=== PATIENT | male | born 1975 | race Caucasian/White ===

== ENCOUNTER 2016-12-02 22:52 | Inpatient (IN) ==
--- NOTE | 2016-12-03 00:09 | Emergency Department Note ---
Disposition Clinical Impression: Abscess of skin or subcutaneous tissue Qualifiers: Site of cutaneous abscess: extremity Site of cutaneous abscess of extremity: upper extremity Laterality: right Qualified Code(s): L02.413 - Cutaneous abscess of right upper limb Cellulitis Qualifiers: Site of cellulitis: extremity Site of cellulitis of extremity: upper extremity Laterality: right Qualified Code(s): L03.113 - Cellulitis of right upper limb Disposition: Admitted As Inpatient Condition: Good Time of Disposition: 04:39 Skin/Abscess/FB HPI Chief complaint: ED Skin/Abscess/Foreign Body Stated complaint: abscess to right wrist Time Seen by Provider: 12/02/16 23:15 Source: patient Limitations: no limitations Nursing Notes Reviewed: Yes Vital Signs Reviewed: Yes HPI Narrative: 41-year-old male complains of abscess to the flexor surface of his right wrist. He states he was seen in this department 1 day ago to return with worsening symptoms. He does state that he has been taking his Keflex and Bactrim. He states the redness has worsened his hand started swelling in his saw no improvement which prompted his visit to the emergency department. He states the abscess was not drained last night since the radial nerve was close to the abscess. He describes initially the abscess started as a ingrown hair. He denies shortness of breath fevers, chills, immune compromised state, h/o of previoius skin infections, IVDU. Previous Rx's Medication Instructions Recorded Naproxen [Naprosyn] 500 mg PO BID PRN #15 tablet 08/18/15 Penicillin VK 500 mg PO TID #21 tablet 08/18/15 Sulfamethoxazole/Trimeth DS 1 each PO BID #14 tablet 12/01/16 [Bactrim DS] cephALEXin [Keflex] 500 mg PO QID #28 capsule 12/01/16 Allergies Allergy/AdvReac Type Severity Reaction Status Date / Time No Known Allergies Allergy Verified 12/01/16 23:01 All systems ED: reviewed and negative except as stated. Constitutional: Denies: fever, chills Eyes: Denies: eye discharge ENT ED: Denies: throat pain Cardiovascular: Denies: palpitations Respiratory: Denies: dyspnea, wheezes Gastrointestinal: Denies: nausea, vomiting Genitourinary: Denies: dysuria Musculoskeletal: Reports: as per HPI. Denies: neck pain Integumentary: Reports: as per HPI Endocrine: Denies: fatigue Hematological/Lymphatic: Denies: easy bleeding Allergic/Immunologic: Denies: facial swelling Past Medical History - Past Medical History Medical history: Reports: no medical history Psychiatric history: Reports: no psych history - Social History Smoking Status: Never smoker Smokeless Tobacco Status: No Alcohol use: Reports: occasionally Drug use: Reports: none Physical Exam - General Limitations: no limitations General appearance: alert, in no apparent distress - Head Head exam: normal inspection - Eye Eye exam: Absent: conjunctival injection - ENT ENT exam: mucous membranes moist - Neck Neck exam: Present: full ROM - Chest Chest inspection: Present: symmetric chest wall rise - Respiratory Respiratory exam: Absent: respiratory distress - Cardiovascular Cardiovascular exam: Present: normal rhythm, tachycardia - Extremities Exam Extremities exam: Present: normal capillary refill - Expanded Upper Extremity Exam Shoulder exam: Present: full ROM Arm exam: Present: full ROM Elbow exam: Present: full ROM Forearm/Wrist exam: Present: tenderness, swelling, other (Abscess or flexor surface of distal forearm, erythema surpasses skin marker, fluctuance, firm, mild drainage) Hand exam: Present: swelling. Absent: tenderness (Right) Neuromotor exam: Normal: wrist extension, thumb opposition, thumb IP flexion, thumb adduction, fingers 2-5 abduction Hand tendon exam: Normal: flexor digitorum profundus (location), flexor digitorum superficialis (location), extensor tendon (location) Vascular exam: Normal: capillary refill, radial pulse - Back Exam Back exam: Present: full ROM - Neurological Exam Neurological exam: Present: alert, oriented X3 - Psychiatric Psychiatric exam: Present: normal affect, normal mood - Skin Skin exam: Present: warm, dry, intact, normal color. Absent: rash, cyanosis, diaphoresis Course Course Narrative: 41-year-old male presents with worsening abscess to his right wrist. Patient seen and examined. The erythema does appear to be outside the skin marker patient mentions was placed last night. Patient is compliant with his antibiotics. There is some mild fluctuance and some drainage. Review of medical records show that there was no fluctuance or drainage yesterday. Patient is slightly tachycardic. Discussed with Dr. Garcia who suggested CT. Will Draw labs. Plan CT. - Reevaluation(s) Reevaluation #1: Patient was discussed with Dr. Garcia who had face time with patient and also discussed CT results with radiologist. Radiologist describing a 3 cm fluid- filled pocket, with the radial artery 1 cm below that. She is recommending admission for more thorough and/or vascular consult. This was discussed with patient who is considering a this time. Time: 03:45 Reevaluation #2: Patient was discussed with and accepted by Dr. Medina Time: 04:34 Vital Signs Temperature 98 F 12/02/16 22:52 Pulse Rate 102 12/02/16 22:52 Respiratory Rate 20 12/02/16 22:52 Blood Pressure 196/108 12/02/16 22:52 O2 Sat by Pulse Oximetry 98 12/02/16 22:52 Temperature 98.7 F 12/03/16 05:16 Pulse Rate 85 12/03/16 05:16 Respiratory Rate 16 12/03/16 05:16 Blood Pressure 187/106 12/03/16 05:16 O2 Sat by Pulse Oximetry 100 12/03/16 05:16 Oxygen Delivery Oxygen Delivery Room Air Skin/Abscess/Foreign Body - MDM Narrative Medical decision making narrative: Patient had initially been seen in the emergency department yesterday for abscess and was put on by mouth antibiotics. He returns today with worsening pain abscess and erythema and swelling. There did appear to be cellulitis in his hand has worsened since yesterday. Ultrasound yesterday was documented by Dr. Saenz and there was a concern for location of the radial artery. With no improvement today CT scan was performed and the radiologist did see the radiating all artery 1 cm deep with recommendations for surgical consultation. Patient was afebrile here as well as at home, however he did have an elevated white count and slightly tachycardic. Blood cultures were drawn, no elevation of lactate. Patient was discussed with hospitalist who sent the patient. Patient was also discussed with attending Dr. Garcia who also had face time with patient and agreed with workup and admission. Forearm CT 12/03/16 00:38 IMPRESSION: Suspected 3.0 cm size abscess in the subcutaneous soft tissues of the radial/volar distal forearm. The radial artery appears to past approximately 1 cm deep to the suspected developing abscess. Surgical consultation is recommended. This was discussed with Dr. Mcguire at 3:43 a.m., 12/03/2016. MRI could better evaluate the soft tissues of the forearm. D/ / Elvin Hawley MD / Elvin Hawley MD Interpreting Provider: Elvin Hawley MD All Lab Results (24 Hours) 12/03/16 12/03/16 12/03/16 Range/Units 00:10 00:10 00:10 WBC 15.4 H (4.3-11.1) K/mcL RBC 5.12 (4.19-5.50) M/mcL Hgb 15.2 (12.9-16.9) g/dL Hct 43.2 (37.5-50.1) % MCV 84.4 (83.0-100.0) fL MCH 29.7 (28.0-33.3) pg MCHC 35.2 (31.6-35.5) g/dL RDW 12.3 (11.5-14.5) % Plt Count 319 (140-400) K/mcL MPV 8.8 L (9.4-12.4) fL Immature Gran % 0.4 (0-4) % Seg Neutrophils % 76.6 % Lymphocytes % 16.0 % Monocytes % 5.8 % Eosinophils % 1.0 % Basophils % 0.2 % Neutrophils # 11.8 H (1.6-8.9) K/mcL Lymphocytes # 2.5 (0.6-4.6) K/mcL Monocytes # 0.9 (0.0-1.3) K/mcL Eosinophils # 0.2 (0.0-0.6) K/mcL Basophils # 0.0 (0.0-0.2) K/mcL Immature Plt Fraction 1.8 (1.1-6.1) % ESR 14 H (0-10) mm/hr Sodium 137 (136-145) mEq/L Potassium 4.2 (3.5-4.5) mEq/L Chloride 105 (98-109) mEq/L Carbon Dioxide 25 (19-29) mEq/L BUN 10 (8-26) mg/dL Creatinine 0.88 (0.72-1.25) mg/dL Est GFR ( Amer) > 60 (> 60) Est GFR (Non-Af Amer) > 60 (> 60) BUN/Creatinine Ratio 11 (6-26) Glucose 138 H (70-99) mg/dL Calculated Osmolality 285 (280-300) Lactic Acid (0.5-2.2) mmol/L Calcium 9.2 (8.6-10.8) mg/dL C-Reactive Protein 24 H (Less than 5) mg/L 12/03/16 Range/Units 00:10 WBC (4.3-11.1) K/mcL RBC (4.19-5.50) M/mcL Hgb (12.9-16.9) g/dL Hct (37.5-50.1) % MCV (83.0-100.0) fL MCH (28.0-33.3) pg MCHC (31.6-35.5) g/dL RDW (11.5-14.5) % Plt Count (140-400) K/mcL MPV (9.4-12.4) fL Immature Gran % (0-4) % Seg Neutrophils % % Lymphocytes % % Monocytes % % Eosinophils % % Basophils % % Neutrophils # (1.6-8.9) K/mcL Lymphocytes # (0.6-4.6) K/mcL Monocytes # (0.0-1.3) K/mcL Eosinophils # (0.0-0.6) K/mcL Basophils # (0.0-0.2) K/mcL Immature Plt Fraction (1.1-6.1) % ESR (0-10) mm/hr Sodium (136-145) mEq/L Potassium (3.5-4.5) mEq/L Chloride (98-109) mEq/L Carbon Dioxide (19-29) mEq/L BUN (8-26) mg/dL Creatinine (0.72-1.25) mg/dL Est GFR ( Amer) (> 60) Est GFR (Non-Af Amer) (> 60) BUN/Creatinine Ratio (6-26) Glucose (70-99) mg/dL Calculated Osmolality (280-300) Lactic Acid 1.1 (0.5-2.2) mmol/L Calcium (8.6-10.8) mg/dL C-Reactive Protein (Less than 5) mg/L - Lab Data Lab results reviewed: Yes I reviewed the patient's lab results. Result diagrams: 12/03/16 00:10 07/29/17 00:10 Lab Results 12/03/16 12/03/16 12/03/16 Range/Units 00:10 00:10 00:10 WBC 15.4 H (4.3-11.1) K/mcL RBC 5.12 (4.19-5.50) M/mcL Hgb 15.2 (12.9-16.9) g/dL Hct 43.2 (37.5-50.1) % MCV 84.4 (83.0-100.0) fL MCH 29.7 (28.0-33.3) pg MCHC 35.2 (31.6-35.5) g/dL RDW 12.3 (11.5-14.5) % Plt Count 319 (140-400) K/mcL MPV 8.8 L (9.4-12.4) fL Immature Gran % 0.4 (0-4) % Seg Neutrophils % 76.6 % Lymphocytes % 16.0 % Monocytes % 5.8 % Eosinophils % 1.0 % Basophils % 0.2 % Neutrophils # 11.8 H (1.6-8.9) K/mcL Lymphocytes # 2.5 (0.6-4.6) K/mcL Monocytes # 0.9 (0.0-1.3) K/mcL Eosinophils # 0.2 (0.0-0.6) K/mcL Basophils # 0.0 (0.0-0.2) K/mcL Immature Plt Fraction 1.8 (1.1-6.1) % ESR 14 H (0-10) mm/hr Sodium 137 (136-145) mEq/L Potassium 4.2 (3.5-4.5) mEq/L Chloride 105 (98-109) mEq/L Carbon Dioxide 25 (19-29) mEq/L BUN 10 (8-26) mg/dL Creatinine 0.88 (0.72-1.25) mg/dL Est GFR ( Amer) > 60 (> 60) Est GFR (Non-Af Amer) > 60 (> 60) BUN/Creatinine Ratio 11 (6-26) Glucose 138 H (70-99) mg/dL Calculated Osmolality 285 (280-300) Lactic Acid (0.5-2.2) mmol/L Calcium 9.2 (8.6-10.8) mg/dL C-Reactive Protein 24 H (Less than 5) mg/L 12/03/16 Range/Units 00:10 WBC (4.3-11.1) K/mcL RBC (4.19-5.50) M/mcL Hgb (12.9-16.9) g/dL Hct (37.5-50.1) % MCV (83.0-100.0) fL MCH (28.0-33.3) pg MCHC (31.6-35.5) g/dL RDW (11.5-14.5) % Plt Count (140-400) K/mcL MPV (9.4-12.4) fL Immature Gran % (0-4) % Seg Neutrophils % % Lymphocytes % % Monocytes % % Eosinophils % % Basophils % % Neutrophils # (1.6-8.9) K/mcL Lymphocytes # (0.6-4.6) K/mcL Monocytes # (0.0-1.3) K/mcL Eosinophils # (0.0-0.6) K/mcL Basophils # (0.0-0.2) K/mcL Immature Plt Fraction (1.1-6.1) % ESR (0-10) mm/hr Sodium (136-145) mEq/L Potassium (3.5-4.5) mEq/L Chloride (98-109) mEq/L Carbon Dioxide (19-29) mEq/L BUN (8-26) mg/dL Creatinine (0.72-1.25) mg/dL Est GFR ( Amer) (> 60) Est GFR (Non-Af Amer) (> 60) BUN/Creatinine Ratio (6-26) Glucose (70-99) mg/dL Calculated Osmolality (280-300) Lactic Acid 1.1 (0.5-2.2) mmol/L Calcium (8.6-10.8) mg/dL C-Reactive Protein (Less than 5) mg/L - Radiology Data Radiology results reviewed: Yes I reviewed the patient's radiology results. Attestation Statement - Attestation Attestation: I examined this patient and my medical decision-making was reviewed with the Resident Physician. I agree with the documented findings, disposition and treatment plan as described except to the extent set forth below. Patient to the emergency department with a chief complaint of an abscess. Seen yesterday for the same and placed on by mouth antibiotics. States it is worse. Patient had an ultrasound done yesterday that showed radial artery and close proximity so they declined to do an I&D. On exam he has a fluctuant area on the volar aspect of the wrist. There is diffuse swelling of the forearm and hand. Plan. CT shows a 3 cm fluid collection with close proximity to the radial artery. Admitted for I&D to surgery. IV antibiotic and admitted. Patient meets SIRS criteria.
[2016-12-03 00:20] LABS: Basophils % 0.2 %; Eosinophils # 0.2 K/mcL (0.0-0.6); Hematocrit 43.2 % (37.5-50.1); Hemoglobin 15.2 g/dL (12.9-16.9); Immature Granulocytes % 0.4 % (0-4); Immature Platelets 1.8 % (1.1-6.1); Lymphocytes # 2.5 K/mcL (0.6-4.6); Mean Corpuscular HGB Conc 35.2 g/dL (31.6-35.5); Mean Corpuscular Hemoglobin 29.7 pg (28.0-33.3); Mean Corpuscular Volume 84.4 fL (83.0-100.0); Mean Platelet Volume 8.8 fL (9.4-12.4); Monocytes # 0.9 K/mcL (0.0-1.3); Monocytes % 5.8 %; Neutrophils # 11.8 K/mcL (1.6-8.9); Platelet Count 319 K/mcL (140-400); Red Blood Count 5.12 M/mcL (4.19-5.50); Red Cell Distribution Width 12.3 % (11.5-14.5); Segmented Neutrophils % 76.6 %
[2016-12-03 00:31] LABS: BUN/Creatinine Ratio 11 (6-26); Blood Urea Nitrogen 10 mg/dL (8-26); C-Reactive Protein 24 mg/L (Less than 5); Calcium 9.2 mg/dL (8.6-10.8); Carbon Dioxide 25 mEq/L (19-29); Chloride 105 mEq/L (98-109); Glucose 138 mg/dL (70-99); Osmolality,Calculated 285 (280-300); Potassium 4.2 mEq/L (3.5-4.5); Sodium 137 mEq/L (136-145); eGFR For African Americans > 60 (> 60); eGFR For Non-African Americans > 60 (> 60)
[2016-12-03] MEDS ORDERED: *HR* HYDROcodone/Acet 5/325 mg TABLET PO ONE (01:29)
[2016-12-03] MEDS ORDERED: Acetaminophen 325 MG TABLET PO PRN (04:50)
[2016-12-03] MEDS ORDERED: Naloxone 0.4 MG/ML INJ IVP PRN (04:50)
[2016-12-03] MEDS ORDERED: Vancomycin 2,000 MG in D5% in Water 250 ML IVPB SCH (05:00)
--- NOTE | 2016-12-03 05:08 | Internal Med History&Physical ---
Date of Encounter: 12/03/16 Time of Encounter: 05:04 Assessment and Plan (1) Abscess of skin or subcutaneous tissue Current visit: Yes Status: Acute consult surgery for I&D, IV vanco, monitor levels, cx pending Qualifiers: Site of cutaneous abscess: extremity Site of cutaneous abscess of extremity : upper extremity Laterality: right Qualified Code(s): L02.413 - Cutaneous abscess of right upper limb (2) Cellulitis Current visit: Yes Status: Acute plan as above Qualifiers: Site of cellulitis: extremity Site of cellulitis of extremity: upper extremity Laterality: right Qualified Code(s): L03.113 - Cellulitis of right upper limb (3) HTN (hypertension), benign Current visit: Yes Status: Acute Probably Undiagnosed hypertension. Monitor inpatient , prn IV med as needed, follow up with PCP outpatient - will need one Internal Medicine - H&P: HPI Chief complaint: right forearm abscess History of present illness: . Mr. Craven is a 41 year old male with probably undiagnosed HTN who presents with right forearm cellulitis. He reported having a infected hair follicle which rapidly progressed over the last 4 days. Initially seen in the ED several days ago with keflex and bactrim for home but did not improve. Had local pain improved with narcotics. It got worse and he presented to the ED for a second time. CT showed suspected 3.0 cm size abscess in the subcutaneous soft tissues of the radial/volar distal forearm. The radial artery appears to past approximately 1 cm deep to the suspected developing abscess. Past Med Surg Social Fam HX - Past Medical History Medical history: no medical history Psychiatric history: no psych history - Social History Smoking Status: Never smoker Smokeless Tobacco Status: No Alcohol use: occasionally Drug use: none Internal Medicine - H&P: Meds Naproxen [Naprosyn] 500 mg PO BID PRN #15 tablet 08/18/15 [Rx] Penicillin VK 500 mg PO TID #21 tablet 08/18/15 [Rx] Sulfamethoxazole/Trimeth DS [Bactrim DS] 1 each PO BID #14 tablet 12/01/16 [Rx] cephALEXin [Keflex] 500 mg PO QID #28 capsule 12/01/16 [Rx] Allergies No Known Allergies Allergy (Verified 12/01/16 23:01) All Systems PM: A 10-system review of systems was performed and is negative for pertinent findings except as documented above in the HPI. Review of systems: ROS 14 point review of systems reviewed as best as possible given presentation. Pertinent positive or negative as per HPI or otherwise reviewed as negative - Constitutional Vitals: Temp Pulse Resp BP Pulse Ox 98 F 80 18 173/100 97 12/02/16 22:52 12/03/16 04:33 12/03/16 04:52 12/03/16 04:52 12/03/16 04:33 Exam: General - AAO x 3 Psych - Appropriate affect/speech. No agitation Eyes - OSCAR. Eye lids intact. No scleral icterus ENT - Oral mucosa pink, dentition intact. External ear clear/dry/intact. No thyromegaly Lymphatics - No cervical/inguinal lympadenopathy Neuro - No gross peripheral or central neuro deficits with intact CN 2-12 exam Heart - Sinus. RRR. S1 and S2 present. No added HS/murmurs appreciated. No elevated JVD appreciated. No calf swellings/erythema Lung - Adequate air entry b/l, No crackes/wheezes appreciated GI - Soft, non-tender. No hepatosplenomegaly/ascities. BS+ - No CVA/suprapubic tenderness or palpable bladder distension Skin - right upper extremity abscess with surrounding erythema and cellulitis Internal Med - H&P Results - Labs CBC & Chem 7: 12/03/16 00:10 12/03/16 00:10
[2016-12-03] MEDS: Vancomycin 1,750 MG in D5% in Water 500 ML IVPB SCH ×2 (05:43→18:07)
[2016-12-03] MEDS: *HR* Enoxaparin 40 MG/0.4 ML SYRINGE SQ SCH (05:53)
--- NOTE | 2016-12-03 10:06 | General Surgery Consult Note ---
Date of Encounter: 12/03/16 Time of Encounter: 10:00 Assessment and Plan (1) Abscess of skin or subcutaneous tissue Current Visit: Yes Status: Acute discussed CT results and exam with patient, will plan I/D of right forearm abscess today, risks and benefits discussed and he wishes to proceed will do at bedside ok for patient to eat continue prn pain medication continue abx Qualifiers: Site of cutaneous abscess: extremity Site of cutaneous abscess of extremity : upper extremity Laterality: right Qualified Code(s): L02.413 - Cutaneous abscess of right upper limb (2) Cellulitis Current Visit: Yes Status: Acute improving per patient, continue abx Qualifiers: Site of cellulitis: extremity Site of cellulitis of extremity: upper extremity Laterality: right Qualified Code(s): L03.113 - Cellulitis of right upper limb (3) Leukocytosis Current Visit: Yes Status: Acute continue abx trend wbc plan I/D today Qualifiers: Leukocytosis type: unspecified Qualified Code(s): D72.829 - Elevated white blood cell count, unspecified History of Present Illness Consult date: 12/03/16 Reason for consult: other (abscess) History of present illness: Patient is 41 yo male who developed right wrist abscess. He states it started as an infected hair follicle 4 days ago. After enlarging and getting more painful and erythematous over 2 days he presented to the ED on 12.01.16 and was given bactrim DS and keflex. He didnt get the antibiotics until the following morning at which point his hand began to swell as did the abscess itself was worse. He presented back to the ED and a CT scan of his right arm was done which showed a 2+ cm fluid collection overlying the right radial artery. He denies Hx IVDA. No fevers chills, or night sweats. Since being admitted and on vanco the swelling in his right hand and abscess has improved. Past Med Surg Social Fam HX - Past Medical History Source: patient Medical history: no medical history Psychiatric history: no psych history - Past Surgical History Surgical History: no surgical history - Social History Smoking Status: Never smoker Smokeless Tobacco Status: No Alcohol use: occasionally Drug use: none - Family History Father Hx Family Cardiac Disorders: Yes (CAD) Hx Family Cancer: Yes (Colon) Hx Family Endocrine Disorder: Yes (DM) Medications and Allergies Naproxen [Naprosyn] 500 mg PO BID PRN #15 tablet 08/18/15 [Rx] Penicillin VK 500 mg PO TID #21 tablet 08/18/15 [Rx] Sulfamethoxazole/Trimeth DS [Bactrim DS] 1 each PO BID #14 tablet 12/01/16 [Rx] cephALEXin [Keflex] 500 mg PO QID #28 capsule 12/01/16 [Rx] Allergies No Known Allergies Allergy (Verified 12/01/16 23:01) Review of Systems All systems PM: reviewed and no additional remarkable complaints except as stated All systems PM: A 10-system review of systems was performed and is negative for pertinent findings except as documented above in the HPI. General Surgery Exam Initial Vital Signs Temp Pulse Resp BP Pulse Ox 98 F 102 20 196/108 98 12/02/16 22:52 12/02/16 22:52 12/02/16 22:52 12/02/16 22:52 12/02/16 22:52 - General physical appearance well developed, well nourished, no distress - Eyes PERRL, normal ocular movement - ENT normal mucosa, normocephalic - Neck trachea midline - Respiratory normal expansion, normal respiratory effort - Cardiovascular Cardiovascular exam: Present: RRR - Integumentary Integumentary general surgery: Present: other (right wrist with fluctuant abscess and breakdown of overlying skin but no drainage, + surrounding induration and erythema, tender) - Musculoskeletal Present: normal gait, normal posture - Psychiatric Psychiatric general surgery: Present: A&Ox3, speech is normal Exam Initial Vital Signs Temp Pulse Resp BP Pulse Ox 98 F 102 20 196/108 98 12/02/16 22:52 12/02/16 22:52 12/02/16 22:52 12/02/16 22:52 12/02/16 22:52 Results - Labs 12/03/16 00:10 12/03/16 00:10 Abnormal lab results WBC 15.4 K/mcL (4.3-11.1) H 12/03/16 00:10 MPV 8.8 fL (9.4-12.4) L 12/03/16 00:10 Neutrophils # 11.8 K/mcL (1.6-8.9) H 12/03/16 00:10 ESR 14 mm/hr (0-10) H 12/03/16 00:10 Glucose 138 mg/dL (70-99) H 12/03/16 00:10 C-Reactive Protein 24 mg/L (Less than 5) H 12/03/16 00:10 All other labs normal. - Imaging Additional studies: CT right arm personally reviewed by myself Consult Discharge Plan - Plan Referrals: NONE,PCP [Primary Care Provider] -
[2016-12-03] MEDS ORDERED: Lidocaine 1% 20 ML MDV ID ONE (10:46)
--- NOTE | 2016-12-03 12:31 | Internal Med Progress Note ---
Date of Encounter: 12/03/16 Time of Encounter: 09:00 - Assessment and plan (1) DVT prophylaxis Current Visit: Yes Status: Acute Assessment and plan: Lovenox subcutaneously (2) Abscess Current Visit: No Status: Acute Assessment and plan: Surgical consult appreciated. Plan for bedside I/D. continue antibiotic treatment. Patient is at high risk because he is on vancomycin, need close monitoring. (3) Cellulitis Current Visit: Yes Status: Acute Assessment and plan: Continue antibiotic treatment. Qualifiers: Site of cellulitis: extremity Site of cellulitis of extremity: upper extremity Laterality: right Qualified Code(s): L03.113 - Cellulitis of right upper limb (4) HTN (hypertension), benign Current Visit: Yes Status: Acute Assessment and plan: Patient is not taking any hypertension medication. Losartan 25 mg added because BP is 166/69. (5) Leukocytosis Current Visit: Yes Status: Acute Assessment and plan: Probably due to abscess. Continue antibiotic treatment. Patient did not meet sepsis criteria. Qualifiers: Leukocytosis type: unspecified Qualified Code(s): D72.829 - Elevated white blood cell count, unspecified - Time Spent With Patient Greater than 35 minutes - Subjective Interval history: Patient is a 41-year-old male admitted for right forearm abscess. His past medical history is significant for hypertension. Patient denies diabetes. Saw and examined the patient. Doing fine. No fever. Vitals stable. Surgical consult appreciated, plan for I and D. Continue antibiotic treatment. - Constitutional Vitals: Temp Pulse Resp BP Pulse Ox 98 F 96 16 166/69 98 12/03/16 12:08 12/03/16 12:08 12/03/16 12:08 12/03/16 12:08 12/03/16 12:08 General appearance: Present: A&O X 3, no acute distress, answers questions appropriately - Head Head exam: Present: atraumatic, normocephalic - Eye Eye exam: Present: PERRL, conjuntiva pink, sclera anicteric Pupils: Present: PERRL - Neck Neck exam general surgery: Present: supple, trachea midline. Absent: lymphadenopathy - Respiratory Respiratory exam: Present: CTAB. Absent: accessory muscle use, rales, rhonchi, wheezes - Cardiovascular Cardiovascular exam: Present: RRR, +S1, +S2. Absent: diastolic murmur, gallop, rubs, systolic murmur - GI/Abdominal GI/Abdominal exam: Present: normal bowel sounds, soft, no peritoneal signs. Absent: distended, tenderness - Extremities Exam Extremities exam: Present: warm, radial pulses palpable and symetrical. Absent : calf tenderness, cyanotic, pedal edema Additional comments: Right forearm 3 x 3 cm lump with skin redness - Neurological Exam Neurological exam: Present: CN II-XII intact, oriented X3, no focal deficits. Absent: pronater drift, facial droop, speech deficit - Skin Skin exam: Present: dry, intact Internal Medicine: Result - Labs CBC & Chem 7: 12/03/16 00:10 12/03/16 00:10 Consult Discharge Plan - Plan Referrals: NONE,PCP [Primary Care Provider] -
[2016-12-03] MEDS: *HR* Morphine 2 MG/ML SYRINGE IVP PRN ×2 (14:07→20:11)
[2016-12-03] MEDS: *HR* HYDROcodone/Acet 5/325 mg TABLET PO PRN ×2 (15:22→23:02)
--- NOTE | 2016-12-03 18:54 | General Surgery Procedure Note ---
Date of procedure: 12/03/16 Pre-op diagnosis: right forearm abscess Post-op diagnosis: same Procedure: Procedure: Incision and drainage right forearm abscess Consent was obtained. Timeout was performed. The area of skin overlying and around the right forearm abscess was prepped with Betadine. 6 mL of 1% lidocaine was injected subcutaneously at the site of the abscess. After adequate time for anesthesia using an 11 blade an elliptical incision was made into the skin into the subcutaneous tissue and purulent drainage resulted. A rubicund anaerobic cultures were obtained. Any loculated fluid within the abscess was broken up with a sterile Q-tip. The wound was irrigated with sterile saline. Quarter inch iodoform packing was packed into the wound. 4 x 4 gauze and Kerlix, and tape were applied as a dressing. Patient tolerated the procedure well. 2 mL blood loss. Complications: none immediate Anesthesia: local Surgeon: Lilly Dietz Estimated blood loss (cc): 2 Pathology: other (aerobic/anaerobic cultures) Condition: stable Disposition: floor
[2016-12-04 04:33] LABS: Basophils % 0.3 %; Eosinophils # 0.2 K/mcL (0.0-0.6); Eosinophils % 2.1 %; Hematocrit 40.1 % (37.5-50.1); Hemoglobin 14.1 g/dL (12.9-16.9); Immature Granulocytes % 0.2 % (0-4); Lymphocytes # 3.3 K/mcL (0.6-4.6); Lymphocytes % 37.4 %; Mean Corpuscular HGB Conc 35.2 g/dL (31.6-35.5); Mean Corpuscular Hemoglobin 30.4 pg (28.0-33.3); Mean Corpuscular Volume 86.4 fL (83.0-100.0); Monocytes # 0.7 K/mcL (0.0-1.3); Monocytes % 7.8 %; Neutrophils # 4.6 K/mcL (1.6-8.9); Platelet Count 237 K/mcL (140-400); Red Blood Count 4.64 M/mcL (4.19-5.50); Red Cell Distribution Width 12.9 % (11.5-14.5); Segmented Neutrophils % 52.2 %
[2016-12-04 04:49] LABS: BUN/Creatinine Ratio 14 (6-26); Blood Urea Nitrogen 12 mg/dL (8-26); Calcium 9.3 mg/dL (8.6-10.8); Carbon Dioxide 24 mEq/L (19-29); Chloride 106 mEq/L (98-109); Glucose 153 mg/dL (70-99); Osmolality,Calculated 285 (280-300); Potassium 3.9 mEq/L (3.5-4.5); Sodium 136 mEq/L (136-145); eGFR For African Americans > 60 (> 60); eGFR For Non-African Americans > 60 (> 60)
[2016-12-04] MEDS ORDERED: Vancomycin 1,250 MG in D5% in Water 250 ML IVPB SCH (06:00)
[2016-12-04] MEDS: *HR* Enoxaparin 40 MG/0.4 ML SYRINGE SQ SCH ×2 (07:01→07:05)
[2016-12-04] MEDS: *HR* HYDROcodone/Acet 5/325 mg TABLET PO PRN (08:44)
[2016-12-04 11:24] VITALS: BP 156/98
[2016-12-04] MEDS: *HR* Morphine 2 MG/ML SYRINGE IVP PRN (12:14)
--- NOTE | 2016-12-04 12:40 | Discharge Summary ---
Date of Encounter: 12/04/16 Time of Encounter: 12:00 - Discharge Diagnosis (1) DVT prophylaxis Priority: Secondary Status: Acute (2) Abscess Priority: Primary Status: Acute (3) Cellulitis Priority: Primary Status: Acute Qualifiers: Site of cellulitis: extremity Site of cellulitis of extremity: upper extremity Laterality: right Qualified Code(s): L03.113 - Cellulitis of right upper limb (4) HTN (hypertension), benign Priority: Primary Status: Chronic (5) Leukocytosis Priority: Primary Status: Acute Qualifiers: Leukocytosis type: unspecified Qualified Code(s): D72.829 - Elevated white blood cell count, unspecified - Discharge Medications Prescriptions: Losartan [Cozaar] 50 mg PO DAILY #60 tab Home Medications: Naproxen [Naprosyn] 500 mg PO BID PRN #15 tablet 08/18/15 [Rx] Sulfamethoxazole/Trimeth DS [Bactrim Ds] 1 each PO BID #14 tablet 12/01/16 [Rx] cephALEXin [Keflex] 500 mg PO QID #28 capsule 12/01/16 [Rx] Losartan [Cozaar] 50 mg PO DAILY #60 tab 12/04/16 [Rx] Allergies/Adverse Reactions: Allergies No Known Allergies Allergy (Verified 12/01/16 23:01) - Notes to Outpatient Provider Patient was found BP is a high, losartan 50 mg by mouth daily added to his home medication, please follow-up blood pressure as outpatient Date of admission: 12/03/16 04:50 Primary care physician: PCP NONE Consults: 12/03/16 05:12 Consult to Surgery [CONS] Routine Consulting Provider: [facility] Reason for Consult: abscess Call Completed: Yes Discharging clinician: Chaparro Finney Anticipated date of discharge: 12/04/16 - Patient Status Disposition: Home, Self-Care Condition: Good Functional capacity at discharge: independent ambulation Overall status at discharge: patient is back to baseline - Discharge Instructions Follow Up With: Vijaya Najera CNP [Advanced Practice Nurse] - (The Office will call with an appointment and time) NONE,PCP [Primary Care Provider] - - Diet and Activity Activity: increase activity as tolerated Diet: low fat, low cholesterol, low salt diet Interval History: HPI: Mr. Craven is a 41 year old male with probably undiagnosed HTN who presents with right forearm cellulitis. He reported having a infected hair follicle which rapidly progressed over the last 4 days. Initially seen in the ED several days ago with keflex and bactrim for home but did not improve. Had local pain improved with narcotics. It got worse and he presented to the ED for a second time. CT showed suspected 3.0 cm size abscess in the subcutaneous soft tissues of the radial/volar distal forearm. The radial artery appears to past approximately 1 cm deep to the suspected developing abscess. Hospital course: Mr. Craven is a 41 year old male admitted here for right forearm abscess. Patient was placed on iv antibiotics. Surgical consult was called and saw patient. Bedside I/D has been done. After treatment, patient's white count getting down. He has no fever. Patient can be discharged home and continue physical by mouth antibiotics: Bactrim DS one tablet twice a day and Keflex 500 mg by mouth 4 times a day. Patient also was prescribed naproxen for his pain already. Patient was found hypertension, losartan 50 mg by mouth daily was prescribed. Blood culture negative 2. Wound culture shows gram positive cocci, patient will continue take Bactrim and Keflex. I saw and examined patient today. He is awake alert, oriented 3. Vitals are stable. Surgical consult saw patient already today. Cleared the patient to discharge from surgical part. Instruction regarding wound care has been given to patient by surgical consult. Patient will discharge home and follow-up with PCP as outpatient. - Time Spent with Patient Total time spent providing and/or coordinating discharge services: 25 minutes Less than 30 minutes - Constitutional Vitals: Temp Pulse Resp BP Pulse Ox 98.3 F 87 16 156/98 98 12/04/16 11:24 12/04/16 11:24 12/04/16 11:24 12/04/16 11:24 12/04/16 11:24 General appearance: Present: A&O X 3, no acute distress, answers questions appropriately - Head Head exam: Present: atraumatic, normocephalic - Eye Eye exam: Present: PERRL, conjuntiva pink, sclera anicteric Pupils: Present: PERRL - Neck Neck exam general surgery: Present: supple, trachea midline. Absent: lymphadenopathy - Respiratory Respiratory exam: Present: CTAB. Absent: accessory muscle use, rales, rhonchi, wheezes - Cardiovascular Cardiovascular exam: Present: RRR, +S1, +S2. Absent: diastolic murmur, gallop, rubs, systolic murmur - GI/Abdominal GI/Abdominal exam: Present: normal bowel sounds, soft, no peritoneal signs. Absent: distended, tenderness - Extremities Exam Extremities exam: Present: warm, radial pulses palpable and symetrical. Absent : calf tenderness, cyanotic, pedal edema Additional comments: Right forearm abscess S/P I/D, well dressed. - Neurological Exam Neurological exam: Present: CN II-XII intact, oriented X3, no focal deficits. Absent: pronater drift, facial droop, speech deficit - Skin Skin exam: Present: dry, intact
--- NOTE | 2016-12-04 13:52 | General Surgery Progress Note ---
Date of Encounter: 12/04/16 Time of Encounter: 13:00 - Assessment and Plan (1) Abscess of skin or subcutaneous tissue Current Visit: Yes Status: Acute wbc normal today can chagne to po abx and dc wound repacked today tomorrow remove packing, wash area with soap and water, apply folded 4x4 gauze and wrap with kerlix and secure with tape, change daily. follow up with [facility]E [employer]TER Ruby Najera December 12 Qualifiers: Site of cutaneous abscess: extremity Site of cutaneous abscess of extremity : upper extremity Laterality: right Qualified Code(s): L02.413 - Cutaneous abscess of right upper limb (2) Cellulitis Current Visit: Yes Status: Acute improving per patient, continue abx Qualifiers: Site of cellulitis: extremity Site of cellulitis of extremity: upper extremity Laterality: right Qualified Code(s): L03.113 - Cellulitis of right upper limb (3) Leukocytosis Current Visit: Yes Status: Acute resolved Qualifiers: Leukocytosis type: unspecified Qualified Code(s): D72.829 - Elevated white blood cell count, unspecified Subjective Patient reports: no new complaints, feels better, still having pain, pain is less Objective Vital Signs - Last 8 Hours Temp Pulse Resp BP Pulse Ox 12/04/16 11:24 98.3 F 87 16 156/98 98 12/04/16 07:53 97.6 F 79 16 178/95 98 Intake and Output 12/03/16 12/04/16 12/04/16 23:59 07:59 15:59 Intake Total 740 / 740 490 / 490 Balance 740 / 740 490 / 490 Intake: IV Fluids 500 / 500 250 / 250 Vancocin 1,250 MG In 250 / 250 Dextrose 5% 250 ML @ 166. 667 mls/hr IVPB Q12H [facility] Rx#:[id number] Vancocin 1,750 MG In 500 / 500 Dextrose 5% 500 ML @ 333. 333 mls/hr IVPB Q12H [facility] Rx#:[id number] Oral 240 / 240 240 / 240 Other: Meal Dinner Breakfast Percent of Meal Consumed 100% 100% - General physical appearance well developed, well nourished, no distress - Eyes normal ocular movement - ENT normal mucosa, normocephalic - Neck Neck exam: trachea midline - Respiratory normal expansion - Incision Incision: Present: red, swollen, inflamed, erythema, open - Integumentary no rash, no growths - Neurologic CN 2-12 grossly intact - Musculoskeletal normal posture - Psychiatric oriented to time, memory intact - Labs 12/04/16 04:12 12/04/16 04:12 Diabetes panel 12/04/16 Range/Units 04:12 Sodium 136 (136-145) mEq/L Potassium 3.9 (3.5-4.5) mEq/L Chloride 106 (98-109) mEq/L Carbon Dioxide 24 (19-29) mEq/L BUN 12 (8-26) mg/dL Creatinine 0.83 (0.72-1.25) mg/dL Glucose 153 H (70-99) mg/dL Calcium 9.3 (8.6-10.8) mg/dL Calcium panel 12/04/16 Range/Units 04:12 Calcium 9.3 (8.6-10.8) mg/dL Pituitary panel 12/04/16 Range/Units 04:12 Sodium 136 (136-145) mEq/L Potassium 3.9 (3.5-4.5) mEq/L Chloride 106 (98-109) mEq/L Carbon Dioxide 24 (19-29) mEq/L BUN 12 (8-26) mg/dL Creatinine 0.83 (0.72-1.25) mg/dL Glucose 153 H (70-99) mg/dL Calcium 9.3 (8.6-10.8) mg/dL Adrenal panel 12/04/16 Range/Units 04:12 Sodium 136 (136-145) mEq/L Potassium 3.9 (3.5-4.5) mEq/L Chloride 106 (98-109) mEq/L Carbon Dioxide 24 (19-29) mEq/L BUN 12 (8-26) mg/dL Creatinine 0.83 (0.72-1.25) mg/dL Glucose 153 H (70-99) mg/dL Calcium 9.3 (8.6-10.8) mg/dL Consult Discharge Plan - Plan Instructions: Losartan (By mouth), Cellulitis (DC), Chronic Hypertension (DC) Referrals: NONE,PCP [Primary Care Provider] - Vijaya Najera, [employer] [Advanced Practice Nurse] - (please call the office for an appt December 12) Prescriptions: Losartan [Cozaar] 50 mg PO DAILY #60 tab Naproxen [Naprosyn] 500 mg PO BID PRN #10 tablet PRN Reason: Pain
== END 2016-12-04 13:25 | disposition home or self-care (01) | DRG 603 ==
LOC: EMEROO 22:52 → 3BNU 22:52 → SUATTDRO 12-03 04:50 → 3BNU 12-03 04:53
PROVIDERS: ADMIT Internal Medicine Hematology & Oncology; ATTEND Internal Medicine